=== PATIENT | female | born 1980 | race Two or more races ===

== ENCOUNTER 2024-12-10 02:39 | Emergency (ER) | payer MEDICAID, SELFPAY ==
--- NOTE | 2024-12-10 03:03 | PD.EDALCOH ---
ED Alcohol RME/HPI General Chief Complaint: Alcohol Stated Complaint: ETOH Source: patient and EMS Arrival date/time: 12/10/24 02:39 Mode of arrival: EMS RME / HPI RME / HPI narrative: Dr. Fletcher?s Main ED Evaluation: 44-year-old female is brought to the ED via ambulance for acute alcohol intoxication, presenting with nausea and vomiting. Per EMS report, the patient drank large amounts of alcohol earlier in the evening. No trauma, seizures, or loss of consciousness reported. On ED evaluation, she is visibly intoxicated, limiting HPI and ROS. Related Data Home Medications ?Medication ?Instructions ?Recorded ?Confirmed No Known Home Medications 06/05/21 06/05/21 Allergies Allergy/AdvReac Type Severity Reaction Status Date / Time ibuprofen (From Advil) Allergy Rash Verified 06/06/21 04:00 Review of Systems Review of Systems Systems Reviewed: All systems reviewed, normal except as documented Past Medical History Past Medical History CARDIAC: Negative Congestive Heart Failure RESPIRATORY: Positive Asthma; Negative Chronic Obstructive Pulmonary Disease (COPD) GENITOURINARY: Negative Renal Disease ENDOCRINE: Negative Diabetes Mellitus Type 1 or Diabetes Mellitus Type 2 Surgical History SURGICAL: Positive Section (x3) Social History SMOKING STATUS: Never smoker ED Exam Narrative Physical exam: GENERAL APPEARANCE: alert and oriented x 4, well-developed, well-nourished, no acute distress, obviously intoxicated, odor of alcohol on her breathe VITALS: All vitals were reviewed and the pulse ox is 95% on room air, which is normal according to my interpretation. HEENT: Normocephalic, atraumatic; pupils equal, round, reactive to light; EOMI; mucous membranes pink, moist; oropharynx clear NECK: Supple LUNGS: CTABL; no wheezes, no rales, no rhonchi HEART: Regular rate, regular rhythm; normal S1, S2; no murmurs ABDOMEN: non distended; normal BS; soft, no tenderness, no guarding, no rebound; no masses, no organomegaly, no hernia BACK: no CVA tenderness EXTREMITIES: atraumatic; no edema NEUROLOGIC: awake; alert and oriented x4; cranial nerves II-XII grossly intact; no focal sensory or motor deficits PSYCHIATRIC: appropriate mood and affect SKIN: warm, dry, normal color; no rashes Course Quality Measures none Orders Category Date Time Status Alcohol, Blood Medical Stat Lab 12/10/24 03:47 Received CBC Stat Lab 12/10/24 05:05 Received CMP [Comprehensive Metabolic Panel] Stat Lab 12/10/24 03:47 Received Vital Signs Vital signs: Vital Signs Temperature 97.7 F 12/10/24 03:07 Pulse Rate 92 12/10/24 03:07 Respiratory Rate 18 12/10/24 03:07 Blood Pressure 150/74 H 12/10/24 03:07 Pulse Oximetry (%) 95 12/10/24 03:07 Oxygen Delivery Method Room Air 12/10/24 03:07 Discharge Plan Prescriptions/Referrals Prescriptions/Med Rec: No Action No Known Home Medications Referrals: Art Lopez MD [Primary Care Provider] - In 1 week Problem List Clinical Impression: Alcohol intoxication Patient/Caregiver Discharge Instructions Print Language: Arabic Alcohol MDM Narrative MDM Narrative: 0600 Care signed out to Dr. Ellsworth. Past medical, surgical, social and family history reviewed. Vitals and home medications reviewed. Results and treatment plan discussed. They will assume the care of the patient at this time and will follow the patient, pending lab results and final disposition. Scribe Attestation: I, Vida Arce, am scribing for and in the presence of Dr. Fletcher. Provider Notation: Although this document has been carefully reviewed, there may still be some phonetic and other typographical errors. These errors are purely grammatical due to imperfections in the software program and should not be construed in any way to compromise the substance of the patient's medical care during this visit. Patient data External records reviewed:: [facility] previous records Clinical information provided by:: patient Social determinants that could affect healthcare access:: none Patient has the following chronic illnesses:: see PMH How is presenting disease/condition affected by chronic disease/condition?: no chronic disease Evaluation data The following diagnostics were reviewed and interpreted by me:: lab results and radiology exam(s) Lab and/or radiology exams considered but not ordered:: na Interpretation Summary: pending Medications / Prescriptions Medications or Prescriptions considered but not ordered:: na Medication administrations:: as above, if any Consultations Consultation(s) initiated? (list below): No Diagnosis Differential diagnosis alcohol: hypomagnesemia, alcohol intoxication and alcohol ketoacidosis Most likely diagnosis given after review of the tests above:: pending work-up Admission Indicated Admission indicated?: not indicated Admission Request Was there a request for admission?: No Disposition Plan Disposition Plan: other (specify) (signout pending work-up)
[2024-12-10 03:07] VITALS: BP 150/74; PULSE 92; RESP 18; TEMP 36.5; O2SAT 95
[2024-12-10 03:08] VITALS: BMI 27.4
[2024-12-10 03:44] VITALS: PULSE 98; O2SAT 99
--- NOTE | 2024-12-10 03:52 | PC.NURSE ---
IV PLACED BY EMS INFILTRATED, IV REMOVED.
[2024-12-10 05:32] LABS: Basophils % (Auto) 0 % (0-2.5); Eosinophils # (Auto) 0.1 Thou/mm3 (0.0-0.5); Eosinophils % (Auto) 2 % (0-10); Hematocrit 40.1 % (36.0-46.0); Hemoglobin 13.5 g/dL (12.0-16.0); Immature Granulocytes % (Auto) 0 % (0-0); Immature Granulocytes Auto 0.01 Thou/mm3 (0.00-0.00); Lymphocytes # (Auto) 3.1 Thou/mm3 (1.0-4.8); Lymphocytes % (Auto) 42 % (10-50); Mean Corpuscular HGB Conc 33.7 g/dl (31.0-37.0); Mean Corpuscular Volume 89 fL (80-100); Monocytes # (Auto) 0.5 Thou/mm3 (0.0-0.8); Monocytes % (Auto) 7 % (0-12); Neutrophils # (Auto) 3.5 Thou/mm3 (1.8-7.7); Neutrophils % (Auto) 49 % (37-80); Nucleated Red Blood Cell % 0 /100 WBC (0); Platelet Count 251 Thou/mm3 (140-440); RDW Standard Deviation 41.9 fL (36.4-46.3); White Blood Count 7.2 Thou/mm3 (3.6-11.0)
--- NOTE | 2024-12-10 06:06 | PD.EDADDENDU ---
Emergency Room Addendum <Kamila Sawyer - Last Filed: 12/10/24 14:02> Addendum Narrative: 0600: Care assumed from Dr. Fletcher, the previous shift emergency physician. Past medical, surgical, social and family history reviewed. Vitals and home medications reviewed. I will assume the care of the patient at this time, pending labs and final disposition. Please refer to the emergency department record for history and examination from initial visit.? Physical exam by me shows patient under no acute distress at this time, but patient seems drunk. 0745: Additional history is taken from significant other who is in the room. The patient reports that she drank both beer and hard liquor. No reported trauma or falls. Significant other states she was complaining of nausea and shortness of breath and that is why the ambulance was called. Currently she is awake and is able to answer questions. She has no headache no shortness of breath or chest pain at this time. Alert and oriented x 3. Able to move all extremities. The patient feels appears hydrated at this time. Review of blood pressure shows 124/72 with a heart rate of 91 and 95% on room air. Labs are reviewed and interpreted by me that show a normal white count at 7.2. Normal hemoglobin at 13 140 and normal platelets at 251. No leukocytosis, anemia, or thrombocytopenia. Electrolytes are reviewed and interpreted by me. Sodium is slightly elevated 148 0805: Patient remains clinically stable throughout the emergency department visit. Re-assessment at the time of disposition demonstrates that the patient is in no acute distress. We reviewed all the results, analysis, and treatment plans. Patient is amenable to discharge. Strict return precautions were outlined. Patient was discharged in stable condition. Diagnosis: Alcohol intoxication <Natalie Ellsworth MD - Last Filed: 12/10/24 08:06> Addendum Narrative: 0600: Care assumed from Dr. Fletcher, the previous shift emergency physician. Past medical, surgical, social and family history reviewed. Vitals and home medications reviewed. I will assume the care of the patient at this time, pending labs and final disposition. Please refer to the emergency department record for history and examination from initial visit.? Physical exam by me shows patient under no acute distress at this time, but patient seems drunk. 0745: Additional history is taken from significant other who is in the room. The patient reports that she drank both beer and hard liquor. No reported trauma or falls. Significant other states she was complaining of nausea and shortness of breath and that is why the ambulance was called. Currently she is awake and is able to answer questions. She has no headache no shortness of breath or chest pain at this time. Alert and oriented x 3. Able to move all extremities. The patient feels appears hydrated at this time. Review of blood pressure shows 124/72 with a heart rate of 91 and 95% on room air. Labs are reviewed and interpreted by me that show a normal white count at 7.2. Normal hemoglobin at 13 140 and normal platelets at 251. No leukocytosis, anemia, or thrombocytopenia. Electrolytes are reviewed and interpreted by me. Sodium is slightly elevated 148
[2024-12-10 06:13] LABS: Alanine Aminotransferase 26 U/L (10-49); Anion Gap 13 (7-16); Aspartate Amino Transferase 20 U/L (0-34); BUN/Creatinine Ratio 18 Ratio (12-20); Bilirubin,Total 0.2 mg/dL (0.3-1.2); Blood Urea Nitrogen 11 mg/dL (9-23); Calcium 9.3 mg/dL (8.3-10.6); Carbon Dioxide 23.2 mMol/L (20.0-31.0); Chloride 112 mMol/L (98-107); Creatinine (Component) 0.6 mg/dL (0.6-1.3); Estimated Creatinine Clearance 119.3 mL/min (>60); Glucose 147 mg/dL (74-106); Osmolality,Calculated 296 (275-295); Potassium 3.8 mMol/L (3.4-5.1); Sodium 148 mMol/L (136-145); Total Protein 7.4 gm/dL (5.7-8.2); eGFR > 60 See Note
[2024-12-10 06:14] LABS: Albumin, Serum 4.2 gm/dL (3.5-5.0); Albumin/Globulin Ratio 1.3 (1.2-2.2); Alkaline Phosphatase 113 U/L (46-116); Calcium (Corrected) 9.3 mg/dL (8.5-10.1); Globulin 3.2 gm/dL (2.3-3.5)
[2024-12-10 06:18] VITALS: BP 124/72; PULSE 91; RESP 19; TEMP 36.6; O2SAT 95
[2024-12-10 08:29] VITALS: BP 118/68; PULSE 90; RESP 18; TEMP 36.9; O2SAT 96
== END 2024-12-10 08:30 | disposition home or self-care (01) ==
PROVIDERS: Emergency Medicine; Emergency Provider Emergency Medicine; PCP Family Medicine
DX: F10.129 Alcohol abuse with intoxication, unspecified (principal)
CPT/HCPCS: 36415; 80053; 80320; 85025; 99283; G0480